=== PATIENT | female | born 1940 | race Two or more races ===

== ENCOUNTER → 2024-06-17 | Outpatient (CLI) | payer OTHER, MEDICAID, SELFPAY ==
[2024-06-17 12:14] LABS: Basophils # (Auto) 0.1 Thou/mm3 (0.0-0.2); Basophils % (Auto) 1 % (0-2.5); Eosinophils # (Auto) 0.1 Thou/mm3 (0.0-0.5); Eosinophils % (Auto) 1 % (0-10); Hematocrit 36.3 % (36.0-46.0); Hemoglobin 12.6 g/dL (12.0-16.0); Immature Granulocytes % (Auto) 0 % (0-0); Immature Granulocytes Auto 0.03 Thou/mm3 (0.00-0.00); Lymphocytes # (Auto) 1.7 Thou/mm3 (1.0-4.8); Lymphocytes % (Auto) 23 % (10-50); Mean Corpuscular HGB Conc 34.7 g/dl (31.0-37.0); Mean Corpuscular Hemoglobin 32.7 pg (25.0-35.0); Mean Corpuscular Volume 94 fL (80-100); Monocytes # (Auto) 0.7 Thou/mm3 (0.0-0.8); Monocytes % (Auto) 9 % (0-12); Neutrophils % (Auto) 66 % (37-80); Nucleated Red Blood Cell % 0 /100 WBC (0); Platelet Count 274 Thou/mm3 (140-440); RDW Standard Deviation 42.5 fL (36.4-46.3); Red Blood Count 3.85 Miln/mm3 (4.00-5.20); White Blood Count 7.7 Thou/mm3 (3.6-11.0)
[2024-06-17 12:26] LABS: Glucose Estimated Average 157 mg/dL (80-131); Hemoglobin A1C 7.1 % Hgb (4.8-6.0)
[2024-06-17 12:31] LABS: Alanine Aminotransferase 14 U/L (10-49); Albumin, Serum 4.4 gm/dL (3.4-4.8); Albumin/Globulin Ratio 1.7 (1.2-2.2); Alkaline Phosphatase 54 U/L (46-116); Anion Gap 7 (7-16); Aspartate Amino Transferase 18 U/L (0-34); BUN/Creatinine Ratio 25 Ratio (12-20); Bilirubin,Total 1.6 mg/dL (0.3-1.2); Blood Urea Nitrogen 20 mg/dL (9-23); Calcium 9.4 mg/dL (8.3-10.6); Calcium (Corrected) 9.4 mg/dL (8.5-10.1); Carbon Dioxide 28.2 mMol/L (20.0-31.0); Cardiac Risk Estimate 3.5 RATIO (3.7-5.6); Chloride 109 mMol/L (98-107); Cholesterol 118 mg/dL (132-200); Creatinine (Component) 0.8 mg/dL (0.6-1.3); Globulin 2.6 gm/dL (2.3-3.5); Glucose 131 mg/dL (74-106); HDL Cholesterol 34 mg/dL (40-60); LDL Cholesterol,Calculated 61 mg/dL (0-130); Osmolality,Calculated 291 (275-295); Potassium 4.3 mMol/L (3.4-5.1); Sodium 144 mMol/L (136-145); Thyroid Stimulating Hormone 1.41 uIU/mL (0.55-4.78); Triglycerides 116 mg/dL (30-150); Uric Acid 5.4 mg/dL (3.1-7.8); eGFR > 60 See Note
[2024-06-17 12:45] LABS: Vitamin B12 427 pg/mL (211-911); Vitamin D 25 Hydroxy Total 86.7 ng/mL (7.3-40.2)
[2024-06-17 14:45] LABS: Collection Type, Urine Clean Catch
[2024-06-17 15:25] LABS: Bilirubin,Urine Negative (Negative); Blood,Urine Negative (Negative); Clarity,Urine Clear (Clear/Hazy); Color,Urine Lt-Yellow (Lt Yel-Yel); Glucose, Urine Negative (Negative); Hyaline Casts,Urine < 1 /hpf (0-1); Ketones,Urine Trace (Negative); Leukocyte Esterase,Urine Positive (Negative); Nitrite,Urine Negative (Negative); PH,Urine 5.5 (5.0-7.0); Protein,Urine Negative (Neg - Trace); RBC,Urine 3 /hpf (0-3); Specific Gravity,Urine 1.017 (1.001-1.035); Squamous Epithelial Cell,Urine 2 /hpf (0-5); Urobilinogen,Urine Negative mg/dL (0.0-1.0); WBC,Urine 2 /hpf (0-5)
[2024-06-17 15:34] LABS: Creatinine MALB Rnd Ur 87 mg/dL (30-125); Microalbumin Creat Ratio 18 mg/gCrea (<30); Microalbumin, Random Urine 16 mg/L (0-300)
== END | disposition home or self-care (01) ==
LOC: COPL 11:26
PROVIDERS: PCP Internal Medicine; Referring Provider Internal Medicine; Visit Provider Internal Medicine
DX: E78.5 Hyperlipidemia, unspecified (principal); E11.9 Type 2 diabetes mellitus without complications; I10 Essential (primary) hypertension
CPT/HCPCS: 36415; 80053; 80061; 81001; 82043; 82306; 82570; 82607; 83036; 84443; 84550; 85025

== ENCOUNTER 2024-08-27 10:37 | Emergency (ER) | payer OTHER, MEDICAID, SELFPAY ==
[2024-08-27 10:41] VITALS: BP 116/83; PULSE 89; RESP 18; TEMP 37.1; O2SAT 95
[2024-08-27 10:48] VITALS: PULSE 91; RESP 17; O2SAT 99
--- NOTE | 2024-08-27 11:25 | PD.EDNECK ---
ED Neck Injury Pain RME/HPI General Chief Complaint: Neck Pain/Injury Stated Complaint: NECK PAIN Time Seen by Provider: 08/27/24 10:51 Source: patient and EMS Arrival date/time: 08/27/24 10:37 Mode of arrival: EMS Limitations: no limitations RME / HPI RME / HPI Narrative: Here today with chronic neck pain without acute changes or injury. Has gabapetin but she is not using it due to sedative side effects. She has had chronic neck pain for 7 months, worse in the past 3 weeks. No fevers or chills. No distal weakness or parethesias. No rigidity. Related Data Home Medications ?Medication ?Instructions ?Recorded ?Confirmed lisinopril 5 mg tablet 5 mg PO QDAY 12/20/19 05/20/22 atorvastatin 20 mg tablet 20 mg PO QDAY 06/03/21 05/20/22 gabapentin 300 mg capsule 300 mg PO BID 06/03/21 05/20/22 duloxetine 30 mg capsule,delayed 30 mg PO BID 05/20/22 05/20/22 release ergocalciferol (vitamin D2) 1,250 1,250 mcg PO QWEEK 05/20/22 05/20/22 mcg (50,000 unit) capsule ferrous sulfate 325 mg (65 mg 325 mg PO QDAY 05/20/22 05/20/22 iron) tablet (FeroSul) flash glucose sensor (FreeStyle 05/20/22 05/20/22 Carmita 2 Sensor kit) glipizide 5 mg-metformin 500 mg 1 tab PO BID 05/20/22 05/20/22 tablet insulin glargine U-300 conc 300 20 unit subcut BID 05/20/22 05/20/22 unit/mL (1.5 mL) subcutaneous pen ([employer] SoloStar U-300 Insulin) lidocaine 5 % topical patch 1 patch topical QDAY 05/20/22 05/20/22 meclizine 12.5 mg tablet 12.5 mg PO QDAY 05/20/22 05/20/22 pen needle, diabetic 32 gauge x 05/20/22 05/20/22 5/32 (Droplet Pen Needle) semaglutide 1 mg/dose (4 mg/3 mL) 1 mg subcut QWEEK 05/20/22 05/20/22 subcutaneous pen injector (Ozempic) Previous Rx's ?Medication ?Instructions ?Recorded pantoprazole 20 mg tablet,delayed 20 mg PO QDAY #30 tabs 06/06/21 release (Protonix) enoxaparin 40 mg/0.4 mL 40 mg (0.4 mL) subcut QDAY #14 mL 05/23/22 subcutaneous syringe naloxegol 25 mg tablet (Movantik) 25 mg PO QDAY #30 tabs 05/23/22 Allergies Allergy/AdvReac Type Severity Reaction Status Date / Time codeine Allergy Verified 08/27/24 10:57 Review of Systems Review of Systems Systems Reviewed: All systems reviewed, normal except as documented ED Exam General Limitations: Present no limitations General appearance: Present alert and in no apparent distress Head Head exam: Present atraumatic Eye Eye exam: Present normal appearance, PERRL and EOMI ENT ENT exam: Present normal exam, normal oropharynx and mucous membranes moist Neck Neck exam: Present normal inspection, full ROM and trachea midline Chest Chest inspection: Present normal inspection and symmetric chest wall rise Respiratory Respiratory exam: Present normal lung sounds bilaterally Cardiovascular Cardiovascular exam: Present regular rate, normal rhythm and normal heart sounds Abdominal Exam Abdominal exam: Present soft and normal bowel sounds Extremities Exam Extremities exam: Present normal inspection and full ROM Back Exam Back exam: Present normal inspection and full ROM Neurological Exam Neurological exam: Present alert and oriented X3 Psychiatric Psychiatric exam: Present normal affect and normal mood Skin Skin exam: Present warm, dry, intact and normal color Course Quality Measures none Orders Category Date Time Status methocarbamoL [Robaxin] Med 08/27/24 11:24 Discontinued 1,000 mg PO X1 ONE Vital Signs Vital signs: Vital Signs Temperature 98.7 F 08/27/24 10:41 Pulse Rate 89 08/27/24 10:41 Respiratory Rate 18 08/27/24 10:41 Blood Pressure 116/83 08/27/24 10:41 Pulse Oximetry (%) 95 08/27/24 10:41 Oxygen Delivery Method Room Air 08/27/24 10:41 Neck Pain MDM Narrative MDM Narrative:: Here today with chronic neck pain without acute changes or injury. Has gabapetin but she is not using it due to sedative side effects. She has had chronic neck pain for 7 months, worse in the past 3 weeks. No fevers or chills. No distal weakness or parethesias. No rigidity. VSS and she is in no distress. No vertbal stepoff or midline tenderness. No nuchal rigidity. She is given a dose of robaxin and asked to follow up with her primary clinic for further management. Return here as needed for any emergent changes. Patient data External records reviewed:: None Clinical information provided by:: patient and EMS Social determinants that could affect healthcare access:: none Patient has the following chronic illnesses:: chronic neck pain How is presenting disease/condition affected by chronic disease/condition?: exacerbated by Evaluation data The following diagnostics were reviewed and interpreted by me:: other (specify) (n/a) Lab and/or radiology exams considered but not ordered:: n/a Interpretation Summary: n/a Medications / Prescriptions Medications or Prescriptions considered but not ordered:: n/a Medication administrations:: Medication Administration History Discontinued Medications Methocarbamol (Methocarbamol 500 Mg Tablet) 1,000 mg PO X1 ONE Stop: 08/27/24 11:25 see above Consultations Consultation(s) initiated? (list below): No Diagnosis Neck Differential Diagnosis: whiplash injury to neck, cervical radiculopathy, torticollis and strain of neck muscle Most likely diagnosis given after review of the tests above:: chronic neck pain Admission Indicated Admission indicated?: not indicated Admission Request Was there a request for admission?: No Disposition Plan Disposition Plan: Discharge Discharge Attestation Discharge Attestation: The patient and all family members were given an opportunity to ask questions and understood the discharge instructions. Discharge instructions specifically effects, indications for sooner follow up or return to the emergency department, and the expected course of current diagnosis. Patient condition: Stable Discharge Plan Plan Patient Disposition: HOME (Self Care) Patient condition on transfer: Stable Prescriptions/Referrals Prescriptions/Med Rec: No Action lisinopril 5 mg Tablet 5 mg PO QDAY atorvastatin 20 mg tablet 20 mg PO QDAY gabapentin 300 mg capsule 300 mg PO BID pantoprazole [Protonix] 20 mg tablet,delayed release (DR/EC) 20 mg PO QDAY Qty: 30 0RF meclizine 12.5 mg tablet 12.5 mg PO QDAY ferrous sulfate [FeroSul] 325 mg (65 mg iron) tablet 325 mg PO QDAY Patient Comments: TAKE ONE TABLET BY MOUTH EVERY DAY lidocaine 5 % adhesive patch,medicated 1 patch TOPICAL QDAY ergocalciferol (vitamin D2) 1,250 mcg (50,000 unit) capsule 1,250 mcg PO QWEEK Patient Comments: TAKE ONE CAPSULE BY MOUTH EVERY WEEK VITAMIN glipizide-metformin 5-500 mg tablet 1 tab PO BID duloxetine 30 mg capsule,delayed release(DR/EC) 30 mg PO BID Patient Comments: TAKE ONE CAPSULE BY MOUTH TWICE DAILY FOR MOOD (DME) pen needle, diabetic [Droplet Pen Needle] 32 gauge x 5/32 needle Dariel SoloStar U-300 Insulin 300 unit/mL (1.5 mL) insulin pen 20 unit SUBCUT BID (DME) FreeStyle Carmita 2 Sensor Kit Patient Comments: CHECK BLOOD SUGAR CHANGE EVERY 14 DAYS Ozempic 1 mg/dose (4 mg/3 mL) pen injector 1 mg SUBCUT QWEEK enoxaparin 40 mg/0.4 mL Syringe 40 mg subcut QDAY Qty: 14 0RF Movantik 25 mg Tablet 25 mg PO QDAY Qty: 30 0RF Problem List Clinical Impression: Chronic neck pain Patient/Caregiver Discharge Instructions Education Materials: ED Neck Pain Additional Instructions: Follow up with your primary clinic. Return here as needed for any emergent changes. Print Language: Kiswahili Stand Alone Forms: Olinda Award Info., Patient Portal Info Letter
[2024-08-27 11:29] VITALS: BP 109/68; PULSE 88; RESP 18; TEMP 37.2; O2SAT 95; BMI 29.0
== END 2024-08-27 12:00 | disposition home or self-care (01) ==
LOC: SERX 12:08
PROVIDERS: Emergency Provider Emergency Medicine; PCP Internal Medicine
DX: M54.2 Cervicalgia (principal); G89.29 Other chronic pain
CPT/HCPCS: 99282

== ENCOUNTER → 2024-11-21 | Outpatient (CLI) | payer OTHER, MEDICAID, SELFPAY ==
[2024-11-21 11:30] LABS: Basophils # (Auto) 0.1 Thou/mm3 (0.0-0.2); Basophils % (Auto) 1 % (0-2.5); Eosinophils # (Auto) 0.3 Thou/mm3 (0.0-0.5); Eosinophils % (Auto) 3 % (0-10); Hematocrit 34.9 % (36.0-46.0); Hemoglobin 11.5 g/dL (12.0-16.0); Immature Granulocytes Auto 0.02 Thou/mm3 (0.00-0.00); Lymphocytes # (Auto) 1.7 Thou/mm3 (1.0-4.8); Lymphocytes % (Auto) 20 % (10-50); Mean Corpuscular HGB Conc 33.0 g/dl (31.0-37.0); Mean Corpuscular Hemoglobin 33.2 pg (25.0-35.0); Mean Corpuscular Volume 101 fL (80-100); Monocytes # (Auto) 0.9 Thou/mm3 (0.0-0.8); Monocytes % (Auto) 10 % (0-12); Neutrophils # (Auto) 5.9 Thou/mm3 (1.8-7.7); Neutrophils % (Auto) 66 % (37-80); Nucleated Red Blood Cell # 0.00 Thou/mm3 (0.00-0.00); Nucleated Red Blood Cell % 0 /100 WBC (0); Platelet Count 273 Thou/mm3 (140-440); RDW Standard Deviation 42.8 fL (36.4-46.3); Red Blood Count 3.46 Miln/mm3 (4.00-5.20); White Blood Count 8.8 Thou/mm3 (3.6-11.0)
[2024-11-21 11:40] LABS: Glucose Estimated Average 157 mg/dL (80-131); Hemoglobin A1C 7.1 % Hgb (4.8-6.0)
[2024-11-21 11:55] LABS: Alanine Aminotransferase 11 U/L (10-49); Albumin, Serum 4.3 gm/dL (3.4-4.8); Albumin/Globulin Ratio 1.9 (1.2-2.2); Alkaline Phosphatase 46 U/L (46-116); Anion Gap 9 (7-16); Aspartate Amino Transferase 16 U/L (0-34); BUN/Creatinine Ratio 28 Ratio (12-20); Bilirubin,Total 0.7 mg/dL (0.3-1.2); Blood Urea Nitrogen 22 mg/dL (9-23); Calcium 9.9 mg/dL (8.3-10.6); Calcium (Corrected) 9.9 mg/dL (8.5-10.1); Carbon Dioxide 28.4 mMol/L (20.0-31.0); Cardiac Risk Estimate 3.2 RATIO (3.7-5.6); Chloride 108 mMol/L (98-107); Cholesterol 114 mg/dL (132-200); Creatinine (Component) 0.8 mg/dL (0.6-1.3); Globulin 2.3 gm/dL (2.3-3.5); Glucose 130 mg/dL (74-106); HDL Cholesterol 36 mg/dL (40-60); LDL Cholesterol,Calculated 54 mg/dL (0-130); Osmolality,Calculated 294 (275-295); Potassium 4.2 mMol/L (3.4-5.1); Sodium 145 mMol/L (136-145); Thyroid Stimulating Hormone 2.22 uIU/mL (0.55-4.78); Total Protein 6.6 gm/dL (5.7-8.2); Triglycerides 122 mg/dL (30-150); Uric Acid 5.4 mg/dL (3.1-7.8); eGFR > 60 See Note
[2024-11-21 11:58] LABS: Vitamin B12 327 pg/mL (211-911); Vitamin D 25 Hydroxy Total 31.1 ng/mL (7.3-40.2)
== END | disposition home or self-care (01) ==
PROVIDERS: PCP Internal Medicine; Referring Provider Internal Medicine; Visit Provider Internal Medicine
DX: E11.9 Type 2 diabetes mellitus without complications (principal); I10 Essential (primary) hypertension; E78.5 Hyperlipidemia, unspecified
CPT/HCPCS: 36415; 80053; 80061; 81001; 82043; 82306; 82570; 82607; 83036; 84443; 84550; 85025

== ENCOUNTER → 2024-11-23 | Outpatient (CLI) | payer OTHER, MEDICAID, SELFPAY ==
[2024-11-23 17:12] LABS: Collection Type, Urine Clean Catch
[2024-11-23 17:46] LABS: Bilirubin,Urine Negative (Negative); Blood,Urine Negative (Negative); Clarity,Urine Clear (Clear/Hazy); Color,Urine Lt-Yellow (Lt Yel-Yel); Glucose, Urine Negative (Negative); Hyaline Casts,Urine < 1 /hpf (0-1); Ketones,Urine Negative (Negative); Leukocyte Esterase,Urine Positive (Negative); Nitrite,Urine Negative (Negative); PH,Urine 6.0 (5.0-7.0); Protein,Urine Negative (Neg - Trace); RBC,Urine 5 /hpf (0-3); Specific Gravity,Urine 1.018 (1.001-1.035); Squamous Epithelial Cell,Urine 1 /hpf (0-5); Urobilinogen,Urine Negative mg/dL (0.0-1.0); WBC,Urine 3 /hpf (0-5)
[2024-11-23 18:05] LABS: Creatinine MALB Rnd Ur 55 mg/dL (30-125); Microalbumin, Random Urine < 3 mg/L (0-300)
== END | disposition home or self-care (01) ==
LOC: SLDO 17:07
PROVIDERS: PCP Internal Medicine; Referring Provider Internal Medicine; Visit Provider Internal Medicine
DX: E11.9 Type 2 diabetes mellitus without complications (principal); I10 Essential (primary) hypertension; E78.5 Hyperlipidemia, unspecified
CPT/HCPCS: 81001; 82043; 82570